=== PATIENT | male | born 1950 | race Caucasian/White ===

== ENCOUNTER 2017-05-08 07:33 | Day surgery (SDC) | payer MEDICARE, BC ==
[~2017-05-08 07:33] MED LIST: Midazolam 1 MG/ML 2 ML SDV ONE; Propofol 200 MG/20 ML SDV ONE; fentaNYL 100 MCG/2 ML SDV ONE
[2017-05-08] MEDS ORDERED: Sodium Chloride 0.9% 1,000 ML IV SCH (08:00)
[2017-05-08 10:21] VITALS: BP 119/78
--- NOTE | 2017-05-09 08:59 | OR ---
DATE OF PROCEDURE: 05/08/2017 PROCEDURE: Colonoscopy. FINDINGS: 1. Ascending colon polyp, approximately 5 mm, completely removed using cold biopsy forceps. 2. Ascending colon polyp #2, approximately 5 mm, completely removed using cold biopsy forceps. 3. Descending colon polyp, approximately 1 cm, completely removed using hot snare. 4. Sigmoid colon polyp, approximately 1.5 cm, completely removed using hot snare. COMPLICATIONS: None. SPECIAL EDUCATOR: None. PREOPERATIVE DIAGNOSIS: History of colon polyps. POSTOPERATIVE DIAGNOSIS: History of colon polyps. RISKS: Risks, benefits, alternatives, limitations including, but not limited to infection, bleeding, and perforation were explained to the patient and they wished to proceed. PROCEDURE IN DETAIL: The patient was placed in left lateral decubitus position. Digital rectal exam was performed without abnormality. The scope was introduced and advanced atraumatically to the ileocecal valve. The scope was brought back to the ascending, transverse, descending colon, and retroflexed. The aforementioned polyps were identified and completely removed in the manner described as above. No diverticulosis. No other masses. No blood. No other complications. The patient tolerated the procedure well. Jose Dunlap MD /[id number]
== END 2017-05-08 10:40 | disposition home or self-care (01) ==
LOC: JP.SDS 07:33
PROVIDERS: ATTEND Surgery
DX: Z12.11 Encounter for screening for malignant neoplasm of colon (principal); D12.2 Benign neoplasm of ascending colon; D12.4 Benign neoplasm of descending colon; D12.5 Benign neoplasm of sigmoid colon
CPT/HCPCS: 45380; 45385; 88305; J2250; J2704; J3010; J7040; 20552

== ENCOUNTER 2018-05-10 17:44 | Observation (INO) | payer MEDICARE, BC ==
[2018-05-10] MEDS ORDERED: Ketorolac 60 MG/2 ML SDV IM ONE (18:13)
--- NOTE | 2018-05-10 18:13 | EDM.PDOC ---
ED HPI GENERAL MEDICAL PROBLEM - General Chief Complaint: Respiratory Problem Stated Complaint: RT LUNG/RIBS PAIN, COUGH Time Seen by Provider: 05/10/18 18:13 Source of Information: Reports: Patient History Limitations: Reports: No Limitations - History of Present Illness INITIAL COMMENTS - FREE TEXT/NARRATIVE: pt started having a cough about 1 week ago. he was seen at the clinic on fri and he was placed on doxycyline and predisone. He has continued to get worse. Onset: Gradual, Other (over a period of 1 week. ) Duration: Hour(s): Location: Reports: Chest Associated Symptoms: Reports: Chest Pain, Cough, Shortness of Breath Right Pain Score (Numeric/FACES): 9 - Related Data Allergies Allergy/AdvReac Type Severity Reaction Status Date / Time environment Allergy Cannot Uncoded 05/06/17 10:08 Remember Home Meds: Home Meds Albuterol [Ventolin HFA] 2 puff INH Q6H PRN 05/06/17 [History] Budesonide/Formoterol [Symbicort 160-4.5 MCG] 2 puff INH BID 05/06/17 [History] Insulin Degludec [Tresiba Flextouch U-200] 70 unit SQ Q24H 05/06/17 [History] Lisinopril [Zestril] 30 mg PO DAILY 05/06/17 [History] Metoprolol Succinate [Toprol XL 100mg] 100 mg PO DAILY 05/06/17 [History] atorvaSTATin [Lipitor] 40 mg PO BEDTIME 05/06/17 [History] glyBURIDE [Glyburide] 5 mg PO DAILY 05/06/17 [History] metFORMIN [Glucophage] 1,000 mg PO DAILY 05/06/17 [History] Past Medical History HEENT History: Reports: Allergic Rhinitis, Cataract, Impaired Vision Cardiovascular History: Reports: High Cholesterol, Hypertension Respiratory History: Reports: Asthma, Bronchitis, Recurrent, Pneumonia, Recurrent Gastrointestinal History: Reports: Chronic Diarrhea, Colon Polyp Musculoskeletal History: Reports: Arthritis Endocrine/Metabolic History: Reports: Diabetes, Type I, Obesity/BMI 30+ - Infectious Disease History Infectious Disease History: Reports: Chicken Pox - Past Surgical History HEENT Surgical History: Reports: Cataract Surgery Cardiovascular Surgical History: Reports: None Respiratory Surgical History: Reports: None GI Surgical History: Reports: Colonoscopy, Polypectomy Endocrine Surgical History: Reports: None Musculoskeletal Surgical History: Reports: None Social & Family History - Tobacco Use Smoking Status *Q: Former Smoker Used Tobacco, but Quit: Yes Month/Year Tobacco Last Used: 2002 - Caffeine Use Caffeine Use: Reports: Coffee - Recreational Drug Use Recreational Drug Use: No ED ROS GENERAL - Review of Systems Review Of Systems: See Below Constitutional: Reports: No Symptoms HEENT: Reports: No Symptoms Respiratory: Reports: Shortness of Breath, Wheezing, Pleuritic Chest Pain, Cough Cardiovascular: Reports: No Symptoms Endocrine: Reports: No Symptoms GI/Abdominal: Reports: No Symptoms : Reports: No Symptoms Musculoskeletal: Reports: No Symptoms Skin: Reports: No Symptoms Neurological: Reports: No Symptoms ED EXAM, GENERAL - Physical Exam Exam: See Below Free Text/Narrative:: pt arrived splinting markedly. He is coughing alomost continuously. He has not been able to rest. Pt states this has been very severe in the last 24 hours. Exam Limited By: No Limitations General Appearance: Alert, Severe Distress Ears: Normal TMs Nose: Normal Inspection Throat/Mouth: Normal Inspection Head: Atraumatic Neck: Normal Inspection Respiratory/Chest: Decreased Breath Sounds, Crackles, Splinting Cardiovascular: Regular Rate, Rhythm, Tachycardia GI/Abdominal: Soft, Non-Tender (Male) Exam: Deferred Rectal (Males) Exam: Deferred Back Exam: Normal Inspection Extremities: Normal Inspection Neurological: Alert, Oriented, Normal Cognition Psychiatric: Anxious Course - Vital Signs Last Recorded V/S: Last Vital Signs Temp 35.7 C 05/10/18 19:13 Pulse 72 05/10/18 21:03 Resp 18 05/10/18 19:13 BP 136/85 05/10/18 21:03 Pulse Ox 91 L 05/10/18 21:03 - Orders/Labs/Meds Orders: Active Orders 24 hr Category Date Time Status EKG Documentation Completion [RC] ASDIRECTED Care 05/10/18 18:19 Active Chest 2V [CR] Stat Exams 05/10/18 18:14 Taken Chest wo Cont [CT] Stat Exams 05/10/18 19:49 Taken Sodium Chloride 0.9% [Normal Saline] 1,000 ml Med 05/10/18 19:00 Active IV ASDIRECTED EKG 12 Lead [EK] Routine Ther 05/10/18 18:19 Ordered Medication Orders Sodium Chloride (Normal Saline) 1,000 mls @ 999 mls/hr IV ASDIRECTED CLEM Last Admin: 05/10/18 19:12 Dose: 999 mls/hr Labs: Laboratory Tests 05/10/18 05/10/18 05/10/18 Range/Units 18:12 18:20 18:20 WBC 11.7 H (4.5-11.0) K/uL RBC 4.68 (4.30-5.90) M/uL Hgb 13.8 (12.0-15.0) g/dL Hct 41.0 (40.0-54.0) % MCV 88 (80-98) fL MCH 30 (27-31) pg MCHC 34 (32-36) % Plt Count 280 (150-400) K/uL Neut % (Auto) 86 H (36-66) % Lymph % (Auto) 8 L (24-44) % [place] % (Auto) 5 (2-6) % Eos % (Auto) 1 L (2-4) % Baso % (Auto) 1 (0-1) % D-Dimer, Quantitative (0.0-400.0) ng/mL Sodium 133 L (140-148) mmol/L Potassium 5.8 H (3.6-5.2) mmol/L Chloride 98 L (100-108) mmol/L Carbon Dioxide 25 (21-32) mmol/L Anion Gap 15.8 H (5.0-14.0) mmol/L BUN 35 H (7-18) mg/dL Creatinine 1.6 H (0.8-1.3) mg/dL Est Cr Clr Drug Dosing 49.85 mL/min Estimated GFR (MDRD) 43 L (>60) Glucose 339 H (74-106) mg/dL Lactic Acid (0.4-2.0) mmol/L Calcium 9.4 (8.5-10.1) mg/dL Total Bilirubin 0.2 (0.2-1.0) mg/dL AST 36 (15-37) U/L ALT 80 H (12-78) U/L Alkaline Phosphatase 72 (46-116) U/L C-Reactive Protein 0.67 H (0.0-0.3) mg/dL Total Protein 7.3 (6.4-8.2) g/dL Albumin 3.6 (3.4-5.0) g/dL Globulin 3.7 H (2.3-3.5) g/dL Albumin/Globulin Ratio 1.0 L (1.2-2.2) Urine Color Urine Appearance Urine pH (4.5-8.0) Ur Specific [place] (1.008-1.030) Urine Protein (NEGATIVE) mg/dL Urine Glucose (UA) (NEGATIVE) mg/dL Urine Ketones (NEGATIVE) mg/dL Urine Occult Blood (NEGATIVE) Urine Nitrite (NEGAITVE) Urine Bilirubin (NEGATIVE) Urine Urobilinogen (NORMAL) mg/dL Ur Leukocyte Esterase (NEGATIVE) Urine RBC (0-5) Urine WBC (0-5) Ur Epithelial Cells Amorphous Sediment Urine Bacteria Urine Mucus 05/10/18 05/10/18 05/10/18 Range/Units 18:46 19:06 21:16 WBC (4.5-11.0) K/uL RBC (4.30-5.90) M/uL Hgb (12.0-15.0) g/dL Hct (40.0-54.0) % MCV (80-98) fL MCH (27-31) pg MCHC (32-36) % Plt Count (150-400) K/uL Neut % (Auto) (36-66) % Lymph % (Auto) (24-44) % [place] % (Auto) (2-6) % Eos % (Auto) (2-4) % Baso % (Auto) (0-1) % D-Dimer, Quantitative 344 (0.0-400.0) ng/mL Sodium (140-148) mmol/L Potassium (3.6-5.2) mmol/L Chloride (100-108) mmol/L Carbon Dioxide (21-32) mmol/L Anion Gap (5.0-14.0) mmol/L BUN (7-18) mg/dL Creatinine (0.8-1.3) mg/dL Est Cr Clr Drug Dosing mL/min Estimated GFR (MDRD) (>60) Glucose (74-106) mg/dL Lactic Acid 2.0 (0.4-2.0) mmol/L Calcium (8.5-10.1) mg/dL Total Bilirubin (0.2-1.0) mg/dL AST (15-37) U/L ALT (12-78) U/L Alkaline Phosphatase (46-116) U/L C-Reactive Protein (0.0-0.3) mg/dL Total Protein (6.4-8.2) g/dL Albumin (3.4-5.0) g/dL Globulin (2.3-3.5) g/dL Albumin/Globulin Ratio (1.2-2.2) Urine Color Yellow Urine Appearance Clear Urine pH 5.0 (4.5-8.0) Ur Specific [place] 1.010 (1.008-1.030) Urine Protein Negative (NEGATIVE) mg/dL Urine Glucose (UA) 1000 H (NEGATIVE) mg/dL Urine Ketones Negative (NEGATIVE) mg/dL Urine Occult Blood Negative (NEGATIVE) Urine Nitrite Negative (NEGAITVE) Urine Bilirubin Negative (NEGATIVE) Urine Urobilinogen Normal (NORMAL) mg/dL Ur Leukocyte Esterase Negative (NEGATIVE) Urine RBC 0-5 (0-5) Urine WBC 0-5 (0-5) Ur Epithelial Cells Few Amorphous Sediment Few Urine Bacteria Not seen Urine Mucus Few Meds: Medications Generic Name Dose Route Start Last Admin Trade Name Joana PRN Reason Stop Dose Admin Sodium Chloride 1,000 mls @ 999 mls/hr 05/10/18 19:00 05/10/18 19:12 Normal Saline IV 999 mls/hr ASDIRECTED CLEM Administration Discontinued Medications Generic Name Dose Route Start Last Admin Trade Name Joana PRN Reason Stop Dose Admin Benzonatate 200 mg 05/10/18 18:17 05/10/18 18:24 Tessalon Perles PO 05/10/18 18:18 200 mg ONETIME ONE Administration Hydromorphone HCl 0.5 mg 05/10/18 21:09 Dilaudid IVPUSH 05/10/18 21:10 ONETIME ONE Ceftriaxone Sodium 1 gm/ 50 mls @ 100 mls/hr 05/10/18 21:08 Sodium Chloride IV 05/10/18 21:37 ONETIME ONE Ketorolac Tromethamine 60 mg 05/10/18 18:13 05/10/18 18:20 Toradol IM 05/10/18 18:14 60 mg ONETIME ONE Administration Oxycodone/Acetaminophen 1 tab 05/10/18 18:14 05/10/18 18:20 Percocet 325-5 Mg PO 05/10/18 18:15 1 tab ONETIME ONE Administration - Re-Assessments/Exams Free Text/Narrative Re-Assessment/Exam: 05/10/18 21:13 [place] [address]. He is very uncomfortable. He had a chest xray that was not very productive. He had a cat scan of his chest which showed a infiltration of the soft tissues of the anterior chest. He had a nodule in the rt lower lobe that looke like a pneumonia. His creatnine is 1.6 with a gfr of 46. Departure - Departure Time of Disposition: 21:16 Disposition: Admitted As Inpatient 68 Condition: Fair Clinical Impression: Pleuritic chest pain, Pneumonia of right lower lobe due to infectious organism , Renal insufficiency - Discharge Information Referrals: Chevy Sanchez MD [Primary Care Provider] - Forms: ED Department Discharge Care Plan Goals: admit to Dr Rodriguez. - My Orders Last 24 Hours: My Active Orders 05/10/18 18:14 Chest 2V [CR] Stat 05/10/18 18:19 EKG Documentation Completion [RC] ASDIRECTED EKG 12 Lead [EK] Routine 05/10/18 19:00 Sodium Chloride 0.9% [Normal Saline] 1,000 ml IV ASDIRECTED 05/10/18 19:49 Chest wo Cont [CT] Stat - Assessment/Plan Last 24 Hours: My Active Orders 05/10/18 18:14 Chest 2V [CR] Stat 05/10/18 18:19 EKG Documentation Completion [RC] ASDIRECTED EKG 12 Lead [EK] Routine 05/10/18 19:00 Sodium Chloride 0.9% [Normal Saline] 1,000 ml IV ASDIRECTED 05/10/18 19:49 Chest wo Cont [CT] Stat
[2018-05-10] MEDS ORDERED: Acetaminophen/oxyCODONE 325-5 MG Tab PO ONE (18:14)
[2018-05-10] MEDS ORDERED: Benzonatate 100 MG Cap PO ONE (18:17)
[2018-05-10] MEDS: Sodium Chloride 0.9% 1,000 ML IV SCH ×2 (19:12→21:42)
[2018-05-10] MEDS ORDERED: cefTRIAXone 1 GM in Sodium Chloride 0.9% 50 ML IV ONE (21:08)
[2018-05-10] MEDS ORDERED: HYDROmorphone 0.5 MG/0.5 ML Syringe IVPUSH ONE (21:09)
--- NOTE | 2018-05-10 22:08 | PCM.HP ---
H&P History of Present Illness - General Date of Service: 05/10/18 Source of Information: Patient History Limitations: Reports: No Limitations - History of Present Illness Initial Comments - Free Text/Narative: 68-year-old male with past medical history of diabetes, hyperlipidemia, hypertension, COPD, asthma came to the ED with the complaining of cough associated with the sputum which started since last 10 days which is gradually progressing. Patient went to the clinic with a similar complaint and received doxycycline medication along with prednisone since last 5 days. patient has been on this medication. Patient reports the symptoms did not get better. Patient complaining of right lower chest pain 7-8/10 in intensity associated with coughing. Patient denies any exertional chest pains. Patient to is not on any oxygen at baseline. Patient to denies any recent COPD hospital admissions. Patient was a previous smoking, quit smoking in 2012 has a smoking history of 45 years for 1 pack per day. Patient reports that he noticed sweating since last 2 days which is gradually progressing. Patient in the ED CT chest showed infiltrates in the anterior chest wall with right lower lobe area. He received ceftriaxone antibiotic and IV fluids. Patient is a full code. Other review of systems are not significant. Right Pain Score (Numeric/FACES): 9 - Related Data Allergies/Adverse Reactions: Allergies Allergy/AdvReac Type Severity Reaction Status Date / Time environment Allergy Cannot Uncoded 05/11/18 00:29 Remember Home Medications: Home Meds Albuterol [Ventolin HFA] 2 puff INH Q6H PRN 05/06/17 [History] Budesonide/Formoterol [Symbicort 160-4.5 MCG] 2 puff INH BID 05/06/17 [History] Insulin Degludec [Tresiba Flextouch U-200] 70 unit SQ Q24H 05/06/17 [History] Lisinopril [Zestril] 30 mg PO DAILY 05/06/17 [History] Metoprolol Succinate [Toprol XL 100mg] 100 mg PO DAILY 05/06/17 [History] glyBURIDE [Glyburide] 5 mg PO DAILY 05/06/17 [History] metFORMIN [Glucophage] 1,000 mg PO DAILY 05/06/17 [History] Lovastatin 20 mg PO WITHDINNER 05/11/18 [History] Montelukast Sodium 10 mg PO BEDTIME 05/11/18 [History] Past Medical History HEENT History: Reports: Allergic Rhinitis, Cataract, Impaired Vision Cardiovascular History: Reports: High Cholesterol, Hypertension Respiratory History: Reports: Asthma, Bronchitis, Recurrent, Pneumonia, Recurrent Gastrointestinal History: Reports: Chronic Diarrhea, Colon Polyp Musculoskeletal History: Reports: Arthritis Endocrine/Metabolic History: Reports: Diabetes, Type I, Obesity/BMI 30+ - Infectious Disease History Infectious Disease History: Reports: Chicken Pox - Past Surgical History HEENT Surgical History: Reports: Cataract Surgery Cardiovascular Surgical History: Reports: None Respiratory Surgical History: Reports: None GI Surgical History: Reports: Colonoscopy, Polypectomy Endocrine Surgical History: Reports: None Musculoskeletal Surgical History: Reports: None Social & Family History - Family History Family Medical History: Noncontributory - Tobacco Use Smoking Status *Q: Former Smoker Used Tobacco, but Quit: Yes Month/Year Tobacco Last Used: 2002 - Caffeine Use Caffeine Use: Reports: Coffee - Recreational Drug Use Recreational Drug Use: No H&P Review of Systems - Review of Systems: Review Of Systems: See Below General: Reports: Fever, Chills, Malaise, Weakness, Fatigue, Night Sweats, Decreased Appetite. Denies: Weight Loss Pulmonary: Reports: Shortness of Breath, Wheezing, Pleuritic Chest Pain, Cough, Sputum. Denies: Hemoptysis Cardiovascular: Reports: Chest Pain, Dyspnea on Exertion. Denies: Palpitations , Orthopnea, PND, Lightheadedness, Syncope, Claudication Gastrointestinal: Denies: Abdominal Pain, Anorexia, Black Stool, Constipation, Diarrhea, Nausea, Vomiting Genitourinary: Denies: Dysuria, Frequency Musculoskeletal: Denies: Neck Pain, Shoulder Pain Psychiatric: Denies: Confusion, Depression, Mood Lability Neurological: Denies: Dizziness, Headache, Numbness Hematologic/Lymphatic: Denies: Anemia, Easy Bleeding Exam - Exam Exam: See Below - Vital Signs Vital Signs: Last Vital Signs Temp 35.7 C 05/10/18 19:13 Pulse 72 05/10/18 21:03 Resp 18 05/10/18 19:13 BP 136/85 05/10/18 21:03 Pulse Ox 91 L 05/10/18 21:03 Weight: 133.81 kg - Exam Quality Assessment: No: Supplemental Oxygen General: Alert, Oriented Neck: Supple, Trachea Midline Lungs: Crackles, Rales Cardiovascular: Regular Rate, Regular Rhythm GI/Abdominal Exam: Normal Bowel Sounds, Soft Back Exam: Normal Inspection, Full Range of Motion Extremities: Normal Inspection, Normal Range of Motion, Non-Tender, No Pedal Edema - Patient Data Lab Results Last 24 hrs: Laboratory Results - last 24 hr 05/10/18 05/10/18 05/10/18 Range/Units 18:12 18:20 18:20 WBC 11.7 H (4.5-11.0) K/uL RBC 4.68 (4.30-5.90) M/uL Hgb 13.8 (12.0-15.0) g/dL Hct 41.0 (40.0-54.0) % MCV 88 (80-98) fL MCH 30 (27-31) pg MCHC 34 (32-36) % Plt Count 280 (150-400) K/uL Neut % (Auto) 86 H (36-66) % Lymph % (Auto) 8 L (24-44) % [place] % (Auto) 5 (2-6) % Eos % (Auto) 1 L (2-4) % Baso % (Auto) 1 (0-1) % D-Dimer, Quantitative (0.0-400.0) ng/mL Sodium 133 L (140-148) mmol/L Potassium 5.8 H (3.6-5.2) mmol/L Chloride 98 L (100-108) mmol/L Carbon Dioxide 25 (21-32) mmol/L Anion Gap 15.8 H (5.0-14.0) mmol/L BUN 35 H (7-18) mg/dL Creatinine 1.6 H (0.8-1.3) mg/dL Est Cr Clr Drug Dosing 49.85 mL/min Estimated GFR (MDRD) 43 L (>60) Glucose 339 H (74-106) mg/dL Lactic Acid (0.4-2.0) mmol/L Calcium 9.4 (8.5-10.1) mg/dL Total Bilirubin 0.2 (0.2-1.0) mg/dL AST 36 (15-37) U/L ALT 80 H (12-78) U/L Alkaline Phosphatase 72 (46-116) U/L C-Reactive Protein 0.67 H (0.0-0.3) mg/dL Total Protein 7.3 (6.4-8.2) g/dL Albumin 3.6 (3.4-5.0) g/dL Globulin 3.7 H (2.3-3.5) g/dL Albumin/Globulin Ratio 1.0 L (1.2-2.2) Urine Color Urine Appearance Urine pH (4.5-8.0) Ur Specific [place] (1.008-1.030) Urine Protein (NEGATIVE) mg/dL Urine Glucose (UA) (NEGATIVE) mg/dL Urine Ketones (NEGATIVE) mg/dL Urine Occult Blood (NEGATIVE) Urine Nitrite (NEGAITVE) Urine Bilirubin (NEGATIVE) Urine Urobilinogen (NORMAL) mg/dL Ur Leukocyte Esterase (NEGATIVE) Urine RBC (0-5) Urine WBC (0-5) Ur Epithelial Cells Amorphous Sediment Urine Bacteria Urine Mucus 05/10/18 05/10/18 05/10/18 Range/Units 18:46 19:06 21:16 WBC (4.5-11.0) K/uL RBC (4.30-5.90) M/uL Hgb (12.0-15.0) g/dL Hct (40.0-54.0) % MCV (80-98) fL MCH (27-31) pg MCHC (32-36) % Plt Count (150-400) K/uL Neut % (Auto) (36-66) % Lymph % (Auto) (24-44) % [place] % (Auto) (2-6) % Eos % (Auto) (2-4) % Baso % (Auto) (0-1) % D-Dimer, Quantitative 344 (0.0-400.0) ng/mL Sodium (140-148) mmol/L Potassium (3.6-5.2) mmol/L Chloride (100-108) mmol/L Carbon Dioxide (21-32) mmol/L Anion Gap (5.0-14.0) mmol/L BUN (7-18) mg/dL Creatinine (0.8-1.3) mg/dL Est Cr Clr Drug Dosing mL/min Estimated GFR (MDRD) (>60) Glucose (74-106) mg/dL Lactic Acid 2.0 (0.4-2.0) mmol/L Calcium (8.5-10.1) mg/dL Total Bilirubin (0.2-1.0) mg/dL AST (15-37) U/L ALT (12-78) U/L Alkaline Phosphatase (46-116) U/L C-Reactive Protein (0.0-0.3) mg/dL Total Protein (6.4-8.2) g/dL Albumin (3.4-5.0) g/dL Globulin (2.3-3.5) g/dL Albumin/Globulin Ratio (1.2-2.2) Urine Color Yellow Urine Appearance Clear Urine pH 5.0 (4.5-8.0) Ur Specific [place] 1.010 (1.008-1.030) Urine Protein Negative (NEGATIVE) mg/dL Urine Glucose (UA) 1000 H (NEGATIVE) mg/dL Urine Ketones Negative (NEGATIVE) mg/dL Urine Occult Blood Negative (NEGATIVE) Urine Nitrite Negative (NEGAITVE) Urine Bilirubin Negative (NEGATIVE) Urine Urobilinogen Normal (NORMAL) mg/dL Ur Leukocyte Esterase Negative (NEGATIVE) Urine RBC 0-5 (0-5) Urine WBC 0-5 (0-5) Ur Epithelial Cells Few Amorphous Sediment Few Urine Bacteria Not seen Urine Mucus Few Result Diagrams: 05/11/18 05:47 05/11/18 05:47 - Problem List (1) Hyperlipemia SNOMED Code(s): 89744076 ICD Code: E78.5 - HYPERLIPIDEMIA, UNSPECIFIED Status: Acute Current Visit : Yes (2) Pleuritic chest pain SNOMED Code(s): 2931661 ICD Code: R07.81 - PLEURODYNIA Status: Acute Current Visit: Yes (3) Pneumonia of right lower lobe due to infectious organism SNOMED Code(s): 903059495, 734034999 ICD Code: J18.1 - LOBAR PNEUMONIA, UNSPECIFIED ORGANISM Status: Acute Current Visit: Yes (4) Renal insufficiency SNOMED Code(s): 155775366, 332401846 ICD Code: N28.9 - DISORDER OF KIDNEY AND URETER, UNSPECIFIED Status: Acute Current Visit: Yes (5) Asthma SNOMED Code(s): 809410939 ICD Code: J45.909 - UNSPECIFIED ASTHMA, UNCOMPLICATED Status: Chronic Current Visit: No (6) CKD (chronic kidney disease) stage 2, GFR 60-89 ml/min SNOMED Code(s): 824858619 ICD Code: N18.2 - CHRONIC KIDNEY DISEASE, STAGE 2 (MILD) Status: Chronic Current Visit: No (7) DDD (degenerative disc disease), lumbar SNOMED Code(s): 68926201 ICD Code: M51.36 - OTHER INTERVERTEBRAL DISC DEGENERATION, LUMBAR REGION Status: Chronic Current Visit: No (8) Morbid obesity with BMI of 50.0-59.9, adult SNOMED Code(s): 024885958 ICD Code: E66.01 - MORBID (SEVERE) OBESITY DUE TO EXCESS CALORIES; Z68.43 - BODY MASS INDEX (BMI) 50-59.9 , ADULT Status: Chronic Current Visit: No (9) Type 2 diabetes mellitus SNOMED Code(s): 63060172 ICD Code: E11.9 - TYPE 2 DIABETES MELLITUS WITHOUT COMPLICATIONS Status: Chronic Current Visit: No Problem List Initiated/Reviewed/Updated: Yes Orders Last 24hrs: Active Orders 24 hr Category Date Time Status EKG Documentation Completion [RC] ASDIRECTED Care 05/10/18 18:19 Active Chest 2V [CR] Stat Exams 05/10/18 18:14 Taken Chest wo Cont [CT] Stat Exams 05/10/18 19:49 Taken Sodium Chloride 0.9% [Normal Saline] 1,000 ml Med 05/10/18 19:00 Active IV ASDIRECTED EKG 12 Lead [EK] Routine Ther 05/10/18 18:19 Ordered Medication Orders Sodium Chloride (Normal Saline) 1,000 mls @ 999 mls/hr IV ASDIRECTED CLEM Last Admin: 05/10/18 21:42 Dose: 999 mls/hr Infusion: 05/10/18 20:13 Dose: 999 mls/hr Admin: 05/10/18 19:12 Dose: 999 mls/hr Assessment/Plan Comment:: 68-year-old male with past medical history of hypertension, hyperlipidemia, COPD , asthma came to the clinic with complaining of cough associated with the sputum and diagnosed with pneumonia in the right lower lobe and admitted into the hospital on observational status We'll place him on levofloxacin 750 mg once daily Continue IV fluids Will repeat CBC, CMP tomorrow Percocet for pain control DVT prophylaxis heparin Diet consistent carb diet, low-salt diet COde status full code Wells catheter not indicated Observational status
[2018-05-10] MEDS ORDERED: Sodium Chloride 0.9% 1,000 ML IV SCH (22:15)
[2018-05-10] MEDS ORDERED: Levofloxacin/Dextrose 5%-Water 750 MG in Premix Bag 1 BAG IV SCH (22:15)
[2018-05-10] MEDS ORDERED: Acetaminophen/oxyCODONE 325-5 MG Tab PO PRN (22:15)
[2018-05-10] MEDS: Benzonatate 100 MG Cap PO PRN (22:57)
[2018-05-10] MEDS: Heparin Sodium 5,000 Units/ML Vial SUBCUT SCH (22:58)
[2018-05-10] MEDS: Albuterol/Ipratropium 3.0-0.5 MG/3 ML Neb Soln NEB PRN (23:00)
[2018-05-10] MEDS: Acetaminophen/oxyCODONE 325-5 MG Tab PO PRN (23:45)
[2018-05-11] MEDS: Acetaminophen/oxyCODONE 325-5 MG Tab PO PRN ×5 (03:59→22:53)
[2018-05-11] MEDS: Albuterol/Ipratropium 3.0-0.5 MG/3 ML Neb Soln NEB PRN ×3 (03:59→19:32)
[2018-05-11] MEDS: Benzonatate 100 MG Cap PO PRN ×4 (04:26→19:43)
[2018-05-11] MEDS: Heparin Sodium 5,000 Units/ML Vial SUBCUT SCH ×3 (05:49→21:06)
--- NOTE | 2018-05-11 09:25 | CR ---
CHEST: 2 view CLINICAL HISTORY:Chest pain COMPARISON:None FINDINGS: The heart size, pulmonary vascular and hilar structures are normal. 05/10/2018 No infiltrat e effusion or pneumothorax is seen. IMPRESSION: No acute cardiopulmonary process.
[2018-05-11] MEDS ORDERED: Non-Formulary Medication 1 Each (Metoprolol Succinate [Toprol Xl 100mg] 100 MG) PO SCH (09:30)
[2018-05-11] MEDS ORDERED: INSULIN DEGLUDEC 70 UNIT SQ SCH (09:30)
[2018-05-11] MEDS ORDERED: Non-Formulary Medication 1 Each (Metformin [Glucophage] 1,000 MG) PO SCH (09:30)
[2018-05-11] MEDS ORDERED: GLYBURIDE 5 MG PO SCH (09:30)
[2018-05-11] MEDS ORDERED: Insulin Detemir 100 Units/ML 3 ML Pen SUBCUT SCH ×2 (09:45)
[2018-05-11] MEDS: METFORMIN 1000 MG PO SCH ×2 (09:47→16:15)
[2018-05-11] MEDS: LISINOPRIL 30 MG PO SCH (11:13)
[2018-05-11] MEDS: GLYBURIDE 5 MG PO SCH (11:13)
[2018-05-11] MEDS: Atenolol 50 MG Tab PO SCH (11:14)
[2018-05-11] MEDS: TRESIBA 100 UNIT/ML SUBCUT SCH (11:14)
--- NOTE | 2018-05-11 11:39 | PCM.PN ---
- General Info Date of Service: 05/11/18 Functional Status: Reports: Tolerating Diet. Denies: Pain Controlled - Review of Systems General: Denies: Fever Pulmonary: Reports: Pleuritic Chest Pain, Cough Systems Review Comment:: There were no acute events since admission. Patient continues to experience significant pain in the right lateral area of his chest. Coughing spells do not seem to respond as well to the benzonatate at this time. Coughing makes his pain significantly worse. He has not had any fevers. He does not have significant shortness of breath unless he has a coughing spell. - Patient Data Vitals - Most Recent: Last Vital Signs Temp 35.5 C 05/11/18 07:13 Pulse 78 05/11/18 11:14 Resp 16 05/11/18 07:13 BP 176/96 H 05/11/18 11:14 Pulse Ox 97 05/11/18 07:13 Weight - Most Recent: 178.897 kg I&O - Last 24 Hours: Intake & Output 05/10/18 05/11/18 05/11/18 22:59 06:59 14:59 Intake Total 1010 Output Total 400 Balance 610 Lab Results Last 24 Hours: Laboratory Results - last 24 hr 05/10/18 05/10/18 05/10/18 Range/Units 18:12 18:20 18:20 WBC 11.7 H (4.5-11.0) K/uL RBC 4.68 (4.30-5.90) M/uL Hgb 13.8 (12.0-15.0) g/dL Hct 41.0 (40.0-54.0) % MCV 88 (80-98) fL MCH 30 (27-31) pg MCHC 34 (32-36) % Plt Count 280 (150-400) K/uL Neut % (Auto) 86 H (36-66) % Lymph % (Auto) 8 L (24-44) % Hall % (Auto) 5 (2-6) % Eos % (Auto) 1 L (2-4) % Baso % (Auto) 1 (0-1) % D-Dimer, Quantitative (0.0-400.0) ng/mL Sodium 133 L (140-148) mmol/L Potassium 5.8 H (3.6-5.2) mmol/L Chloride 98 L (100-108) mmol/L Carbon Dioxide 25 (21-32) mmol/L Anion Gap 15.8 H (5.0-14.0) mmol/L BUN 35 H (7-18) mg/dL Creatinine 1.6 H (0.8-1.3) mg/dL Est Cr Clr Drug Dosing 49.85 mL/min Estimated GFR (MDRD) 43 L (>60) Glucose 339 H (74-106) mg/dL Lactic Acid (0.4-2.0) mmol/L Calcium 9.4 (8.5-10.1) mg/dL Total Bilirubin 0.2 (0.2-1.0) mg/dL AST 36 (15-37) U/L ALT 80 H (12-78) U/L Alkaline Phosphatase 72 (46-116) U/L C-Reactive Protein 0.67 H (0.0-0.3) mg/dL Total Protein 7.3 (6.4-8.2) g/dL Albumin 3.6 (3.4-5.0) g/dL Globulin 3.7 H (2.3-3.5) g/dL Albumin/Globulin Ratio 1.0 L (1.2-2.2) Urine Color Urine Appearance Urine pH (4.5-8.0) Ur Specific Gar[place] (1.008-1.030) Urine Protein (NEGATIVE) mg/dL Urine Glucose (UA) (NEGATIVE) mg/dL Urine Ketones (NEGATIVE) mg/dL Urine Occult Blood (NEGATIVE) Urine Nitrite (NEGAITVE) Urine Bilirubin (NEGATIVE) Urine Urobilinogen (NORMAL) mg/dL Ur Leukocyte Esterase (NEGATIVE) Urine RBC (0-5) Urine WBC (0-5) Ur Epithelial Cells Amorphous Sediment Urine Bacteria Urine Mucus 05/10/18 05/10/18 05/10/18 Range/Units 18:46 19:06 21:16 WBC (4.5-11.0) K/uL RBC (4.30-5.90) M/uL Hgb (12.0-15.0) g/dL Hct (40.0-54.0) % MCV (80-98) fL MCH (27-31) pg MCHC (32-36) % Plt Count (150-400) K/uL Neut % (Auto) (36-66) % Lymph % (Auto) (24-44) % Hall % (Auto) (2-6) % Eos % (Auto) (2-4) % Baso % (Auto) (0-1) % D-Dimer, Quantitative 344 (0.0-400.0) ng/mL Sodium (140-148) mmol/L Potassium (3.6-5.2) mmol/L Chloride (100-108) mmol/L Carbon Dioxide (21-32) mmol/L Anion Gap (5.0-14.0) mmol/L BUN (7-18) mg/dL Creatinine (0.8-1.3) mg/dL Est Cr Clr Drug Dosing mL/min Estimated GFR (MDRD) (>60) Glucose (74-106) mg/dL Lactic Acid 2.0 (0.4-2.0) mmol/L Calcium (8.5-10.1) mg/dL Total Bilirubin (0.2-1.0) mg/dL AST (15-37) U/L ALT (12-78) U/L Alkaline Phosphatase (46-116) U/L C-Reactive Protein (0.0-0.3) mg/dL Total Protein (6.4-8.2) g/dL Albumin (3.4-5.0) g/dL Globulin (2.3-3.5) g/dL Albumin/Globulin Ratio (1.2-2.2) Urine Color Yellow Urine Appearance Clear Urine pH 5.0 (4.5-8.0) Ur Specific [place] 1.010 (1.008-1.030) Urine Protein Negative (NEGATIVE) mg/dL Urine Glucose (UA) 1000 H (NEGATIVE) mg/dL Urine Ketones Negative (NEGATIVE) mg/dL Urine Occult Blood Negative (NEGATIVE) Urine Nitrite Negative (NEGAITVE) Urine Bilirubin Negative (NEGATIVE) Urine Urobilinogen Normal (NORMAL) mg/dL Ur Leukocyte Esterase Negative (NEGATIVE) Urine RBC 0-5 (0-5) Urine WBC 0-5 (0-5) Ur Epithelial Cells Few Amorphous Sediment Few Urine Bacteria Not seen Urine Mucus Few 05/11/18 05/11/18 Range/Units 05:47 05:47 WBC 9.2 (4.5-11.0) K/uL RBC 4.34 (4.30-5.90) M/uL Hgb 12.8 (12.0-15.0) g/dL Hct 38.3 L (40.0-54.0) % MCV 88 (80-98) fL MCH 30 (27-31) pg MCHC 33 (32-36) % Plt Count 242 (150-400) K/uL Neut % (Auto) 67 H (36-66) % Lymph % (Auto) 22 L (24-44) % Hall % (Auto) 8 H (2-6) % Eos % (Auto) 2 (2-4) % Baso % (Auto) 1 (0-1) % D-Dimer, Quantitative (0.0-400.0) ng/mL Sodium 137 L (140-148) mmol/L Potassium 4.6 (3.6-5.2) mmol/L Chloride 101 (100-108) mmol/L Carbon Dioxide 28 (21-32) mmol/L Anion Gap 12.6 (5.0-14.0) mmol/L BUN 35 H (7-18) mg/dL Creatinine 1.4 H (0.8-1.3) mg/dL Est Cr Clr Drug Dosing 57.05 mL/min Estimated GFR (MDRD) 51 L (>60) Glucose 164 H (74-106) mg/dL Lactic Acid (0.4-2.0) mmol/L Calcium 8.6 (8.5-10.1) mg/dL Total Bilirubin 0.2 (0.2-1.0) mg/dL AST 23 (15-37) U/L ALT 65 (12-78) U/L Alkaline Phosphatase 54 (46-116) U/L C-Reactive Protein (0.0-0.3) mg/dL Total Protein 6.5 (6.4-8.2) g/dL Albumin 3.2 L (3.4-5.0) g/dL Globulin 3.3 (2.3-3.5) g/dL Albumin/Globulin Ratio 1.0 L (1.2-2.2) Urine Color Urine Appearance Urine pH (4.5-8.0) Ur Specific [place] (1.008-1.030) Urine Protein (NEGATIVE) mg/dL Urine Glucose (UA) (NEGATIVE) mg/dL Urine Ketones (NEGATIVE) mg/dL Urine Occult Blood (NEGATIVE) Urine Nitrite (NEGAITVE) Urine Bilirubin (NEGATIVE) Urine Urobilinogen (NORMAL) mg/dL Ur Leukocyte Esterase (NEGATIVE) Urine RBC (0-5) Urine WBC (0-5) Ur Epithelial Cells Amorphous Sediment Urine Bacteria Urine Mucus Med Orders - Current: Current Medications Albuterol/Ipratropium (Duoneb 3.0-0.5 Mg/3 Ml) 3 ml NEB QID PRN PRN Reason: Shortness Of Breath/wheezing Last Admin: 05/11/18 10:46 Dose: 3 ml Atenolol (Tenormin) 100 mg PO DAILY [facility] Last Admin: 05/11/18 11:14 Dose: 100 mg Benzonatate (Tessalon Perles) 200 mg PO TID PRN PRN Reason: Cough Last Admin: 05/11/18 09:34 Dose: 200 mg Heparin Sodium (Porcine) (Heparin Sodium) 5,000 units SUBCUT Q8H [facility] Sodium Chloride (Normal Saline) 1,000 mls @ 150 mls/hr IV ASDIRECTED [facility] Last Admin: 05/10/18 22:58 Dose: 150 mls/hr Levofloxacin/Dextrose 750 mg/ (Premix) 150 mls @ 100 mls/hr IV Q24H [facility] Lovastatin (Mevacor) 20 mg PO WITHDINNER [facility] Metformin HCl (Glucophage) 1,000 mg PO BIDMEALS [facility] Last Admin: 05/11/18 09:47 Dose: Not Given Non-Formulary Medication (Budesonide/Formoterol [Symbicort 160-4.5 Mcg]) 2 puff INH BID [facility] Oxycodone/Acetaminophen (Percocet 325-5 Mg) 1 tab PO Q4H PRN PRN Reason: Pain/Fever Last Admin: 05/11/18 10:45 Dose: 1 tab Lisinopril 30mg ( (Ptom)) 0 each PO DAILY [facility] Last Admin: 05/11/18 11:13 Dose: 1 each Tresiba 100units/Ml (Pen --Ptom) 0 each SUBCUT DAILY [facility] Last Admin: 05/11/18 11:14 Dose: 1 each Glyburide 5mg Tab ( (Ptom)) 0 each PO DAILY [facility] Last Admin: 05/11/18 11:13 Dose: 1 each Discontinued Medications Benzonatate (Tessalon Perles) 200 mg PO ONETIME ONE Stop: 05/10/18 18:18 Last Admin: 05/10/18 18:24 Dose: 200 mg Heparin Sodium (Porcine) (Heparin Sodium) 5,000 units SUBCUT Q8H [facility] Last Admin: 05/11/18 05:49 Dose: 5,000 units Hydromorphone HCl (Dilaudid) 0.5 mg IVPUSH ONETIME ONE Stop: 05/10/18 21:10 Last Admin: 05/10/18 21:41 Dose: 0.5 mg Sodium Chloride (Normal Saline) 1,000 mls @ 999 mls/hr IV ASDIRECTED [facility] Last Admin: 05/10/18 21:42 Dose: 999 mls/hr Ceftriaxone Sodium 1 gm/ (Sodium Chloride) 50 mls @ 100 mls/hr IV ONETIME ONE Stop: 05/10/18 21:37 Last Admin: 05/10/18 21:41 Dose: 100 mls/hr Levofloxacin/Dextrose 750 mg/ (Premix) 150 mls @ 100 mls/hr IV Q24H [facility] Last Admin: 05/10/18 22:56 Dose: 100 mls/hr Ketorolac Tromethamine (Toradol) 60 mg IM ONETIME ONE Stop: 05/10/18 18:14 Last Admin: 05/10/18 18:20 Dose: 60 mg Non-Formulary Medication (Atorvastatin [Lipitor]) 40 mg PO BEDTIME [facility] Non-Formulary Medication (Metoprolol Succinate [Toprol Xl 100mg]) 100 mg PO DAILY [facility] Oxycodone/Acetaminophen (Percocet 325-5 Mg) 1 tab PO ONETIME ONE Stop: 05/10/18 18:15 Last Admin: 05/10/18 18:20 Dose: 1 tab Oxycodone/Acetaminophen (Percocet 325-5 Mg) 1 tab PO Q6H PRN PRN Reason: Pain/Fever - Exam Quality Assessment: No: Supplemental Oxygen General: Alert, Oriented, Cooperative, Mild Distress Lungs: Clear to Auscultation, Normal Respiratory Effort, Other (tender right lateral chest wall. No ) Cardiovascular: Regular Rate, Regular Rhythm GI/Abdominal Exam: Soft, No Distention Psy/Mental Status: Alert, Normal Affect - Problem List Review Problem List Initiated/Reviewed/Updated: Yes - My Orders Last 24 Hours: My Active Orders 05/11/18 09:40 metFORMIN [Glucophage] 1,000 mg PO BIDMEALS 05/11/18 11:00 Atenolol [Tenormin] 100 mg PO DAILY Patient's Own Medication [Ptom] 0 each PO DAILY Patient's Own Medication [Ptom] 0 each PO DAILY Patient's Own Medication [Ptom] 0 each SUBCUT DAILY 05/11/18 11:35 Albuterol [Ventolin HFA] 2 puff INH Q6H PRN Codeine/guaiFENesin [Robitussin AC] 10 ml PO Q4H PRN 05/11/18 11:36 Cooling Warming Measures [RC] ASDIRECTED Heat Therapy [OM.PC] Routine Ice Pack [Ice Therapy] [OM.PC] Routine 05/11/18 11:45 Lidocaine 5% [Lidoderm 5%] 700 mg TOP Q24H 05/11/18 17:00 Lovastatin [Lovastatin] 20 mg PO WITHDINNER Lovastatin [Mevacor] 20 mg PO WITHDINNER 05/11/18 21:00 Budesonide/Formoterol [Symbicort 160-4.5 MCG] 2 puff INH BID Montelukast Sodium [Montelukast Sodium] 10 mg PO BEDTIME 05/12/18 05:00 BASIC METABOLIC PANEL,BMP [CHEM] Timed CBC W/O DIFF,HEMOGRAM [HEME] Timed (1) - Plan Plan:: ASSESSMENT AND PLAN - Right chest wall pain - CT scan noted area of edema and inflammation. I suspect this is either inflammation related to muscle strain or possibly a small hematoma from his coughing. He continues to experience significant pain. -Lidocaine patch -Oxycodone as needed for moderate to severe pain -Alternate heat and ice Probable acute bronchitis - Patient with cough and increased shortness of breath prior to admission. History of asthma/COPD but no evidence for exacerbation of COPD at this time. Chest x-ray did not show significant pneumonia. -Continue levofloxacin Insulin-dependent diabetes mellitus - blood sugars have been fairly well- controlled. -Continue home medications Essential hypertension - continue home meds Maintenance issues - - DVT prophylaxis - heparin - GI prophylaxis - not indicated - Nutrition - diabetic Admission justification - patient will remain observation status today Disposition - I would anticipate discharge to home after the hospital stay Iván Dan M.D.
[2018-05-11] MEDS: Lidocaine 5% 700 MG Patch TOP SCH (13:02)
[2018-05-11] MEDS: Codeine/guaiFENesin 100mg-10 MG/5 ML Syrup 10 ML Cup PO PRN ×2 (13:07→16:58)
[2018-05-11] MEDS ORDERED: Albuterol 8 GM Inhaler INH PRN (14:42)
[2018-05-11] MEDS: Lovastatin 20 MG Tab (PTOM) PO SCH (16:15)
[2018-05-11] MEDS ORDERED: LOVASTATIN 20 MG PO SCH (17:00)
[2018-05-11] MEDS ORDERED: Non-Formulary Medication 1 Each (Budesonide/Formoterol [Symbicort 160-4.5 Mcg] 2 PUFF) INH SCH (21:00)
[2018-05-11] MEDS ORDERED: Non-Formulary Medication 1 Each (Atorvastatin [Lipitor] 40 MG) PO SCH (21:00)
[2018-05-11] MEDS ORDERED: MONTELUKAST SODIUM 10 MG PO SCH (21:00)
[2018-05-11] MEDS: Levofloxacin/Dextrose 5%-Water 750 MG in Premix Bag 1 BAG IV SCH (21:05)
[2018-05-11] MEDS: MONTELUKAST 10 MG PO SCH (21:06)
[2018-05-12] MEDS: Acetaminophen/oxyCODONE 325-5 MG Tab PO PRN ×4 (02:47→20:05)
[2018-05-12] MEDS: Benzonatate 100 MG Cap PO PRN ×2 (05:11→17:59)
[2018-05-12] MEDS: Heparin Sodium 5,000 Units/ML Vial SUBCUT SCH ×3 (05:11→23:30)
[2018-05-12] MEDS: Codeine/guaiFENesin 100mg-10 MG/5 ML Syrup 10 ML Cup PO PRN (05:20)
[2018-05-12] MEDS: Ketorolac 30 MG/ML SDV IVPUSH PRN (05:20)
[2018-05-12] MEDS: METFORMIN 1000 MG PO SCH ×2 (08:36→16:03)
[2018-05-12] MEDS: GLYBURIDE 5 MG PO SCH (08:36)
[2018-05-12] MEDS: TRESIBA 100 UNIT/ML SUBCUT SCH (08:37)
[2018-05-12] MEDS: Lidocaine 5% 700 MG Patch TOP SCH (08:37)
[2018-05-12] MEDS: Albuterol/Ipratropium 3.0-0.5 MG/3 ML Neb Soln NEB PRN ×2 (09:46→17:59)
[2018-05-12] MEDS: Atenolol 50 MG Tab PO SCH (10:14)
[2018-05-12] MEDS: LISINOPRIL 30 MG PO SCH (10:14)
[2018-05-12] MEDS: Docusate Sodium 100 MG Cap PO SCH (10:36)
[2018-05-12] MEDS ORDERED: Ibuprofen 600 MG Tab PO PRN (14:08)
--- NOTE | 2018-05-12 14:16 | PCM.PN ---
- General Info Date of Service: 05/12/18 Functional Status: Reports: Tolerating Diet - Review of Systems General: Denies: Fever Musculoskeletal: Reports: Other (chest wall pain on the right ) Systems Review Comment:: One episode of acute pain overnight with coughing but otherwise he feels better today. He is able to move better and his pain has improved. Still a fair amount of pain with coughing and he is very nervous about going home given the severity of his pain last night. Cough seems to be slowly improving. He has not had any fevers. No bowel movement since admission. - Patient Data Vitals - Most Recent: Last Vital Signs Temp 35.7 C 05/12/18 08:34 Pulse 83 05/12/18 08:34 Resp 16 05/12/18 08:34 BP 111/73 05/12/18 09:50 Pulse Ox 96 05/12/18 08:34 Weight - Most Recent: 136.894 kg I&O - Last 24 Hours: Intake & Output 05/11/18 05/12/18 05/12/18 22:59 06:59 14:59 Intake Total 1200 500 240 Output Total 400 Balance 1200 100 240 Lab Results Last 24 Hours: Laboratory Results - last 24 hr 05/12/18 05/12/18 Range/Units 05:00 05:00 WBC 10.3 (4.5-11.0) K/uL RBC 4.33 (4.30-5.90) M/uL Hgb 12.9 (12.0-15.0) g/dL Hct 38.5 L (40.0-54.0) % MCV 89 (80-98) fL MCH 30 (27-31) pg MCHC 34 (32-36) % Plt Count 224 (150-400) K/uL Sodium 136 L (140-148) mmol/L Potassium 4.7 (3.6-5.2) mmol/L Chloride 101 (100-108) mmol/L Carbon Dioxide 26 (21-32) mmol/L Anion Gap 13.7 (5.0-14.0) mmol/L BUN 25 H (7-18) mg/dL Creatinine 1.3 (0.8-1.3) mg/dL Est Cr Clr Drug Dosing 61.35 mL/min Estimated GFR (MDRD) 55 L (>60) Glucose 110 H (74-106) mg/dL Calcium 8.9 (8.5-10.1) mg/dL Med Orders - Current: Current Medications Albuterol (Ventolin Hfa) 0 gm INH Q6H PRN PRN Reason: Shortness of Breath Albuterol/Ipratropium (Duoneb 3.0-0.5 Mg/3 Ml) 3 ml NEB QID PRN PRN Reason: Shortness Of Breath/wheezing Last Admin: 05/12/18 09:46 Dose: 3 ml Atenolol (Tenormin) 100 mg PO DAILY [facility] Last Admin: 05/12/18 10:14 Dose: Not Given Benzonatate (Tessalon Perles) 200 mg PO TID PRN PRN Reason: Cough Last Admin: 05/12/18 05:11 Dose: 200 mg Docusate Sodium (Colace) 100 mg PO DAILY [facility] Last Admin: 05/12/18 10:36 Dose: 100 mg Guaifenesin/Codeine Phosphate (Robitussin Ac) 10 ml PO Q4H PRN PRN Reason: Cough Last Admin: 05/12/18 05:20 Dose: 10 ml Heparin Sodium (Porcine) (Heparin Sodium) 5,000 units SUBCUT Q8H [facility] Last Admin: 05/12/18 13:32 Dose: 5,000 units Levofloxacin/Dextrose 750 mg/ (Premix) 150 mls @ 100 mls/hr IV Q24H [facility] Last Admin: 05/11/18 21:05 Dose: 100 mls/hr Ketorolac Tromethamine (Toradol) 15 mg IVPUSH Q6H PRN PRN Reason: Pain (severe 7-10) Stop: 05/16/18 17:23 Last Admin: 05/12/18 05:20 Dose: 15 mg Lidocaine (Lidoderm 5%) 700 mg TOP DAILY [facility] Last Admin: 05/12/18 08:37 Dose: 700 mg Lovastatin (Mevacor) 20 mg PO WITHDINNER [facility] Last Admin: 05/11/18 16:15 Dose: 20 mg Metformin HCl (Glucophage) 1,000 mg PO BIDMEALS [facility] Last Admin: 05/12/18 08:36 Dose: 1,000 mg Miscellaneous Information (Remove Patch) 1 ea TRDERM BEDTIME [facility] Last Admin: 05/11/18 23:00 Dose: Not Given Montelukast Sodium (Singulair) 10 mg PO BEDTIME [facility] Last Admin: 05/11/18 21:06 Dose: 10 mg Non-Formulary Medication (Budesonide/Formoterol [Symbicort 160-4.5 Mcg]) 2 puff INH BID [facility] Oxycodone/Acetaminophen (Percocet 325-5 Mg) 1 tab PO Q4H PRN PRN Reason: Pain/Fever Last Admin: 05/12/18 09:46 Dose: 1 tab Lisinopril 30mg ( (Ptom)) 0 each PO DAILY [facility] Last Admin: 05/12/18 10:14 Dose: Not Given Tresiba 100units/Ml (Pen --Ptom) 0 each SUBCUT DAILY [facility] Last Admin: 05/12/18 08:37 Dose: 60 each Glyburide 5mg Tab ( (Ptom)) 0 each PO DAILY [facility] Last Admin: 05/12/18 08:36 Dose: 1 each Discontinued Medications Benzonatate (Tessalon Perles) 200 mg PO ONETIME ONE Stop: 05/10/18 18:18 Last Admin: 05/10/18 18:24 Dose: 200 mg Heparin Sodium (Porcine) (Heparin Sodium) 5,000 units SUBCUT Q8H [facility] Last Admin: 05/11/18 05:49 Dose: 5,000 units Hydromorphone HCl (Dilaudid) 0.5 mg IVPUSH ONETIME ONE Stop: 05/10/18 21:10 Last Admin: 05/10/18 21:41 Dose: 0.5 mg Sodium Chloride (Normal Saline) 1,000 mls @ 999 mls/hr IV ASDIRECTED [facility] Last Admin: 05/10/18 21:42 Dose: 999 mls/hr Ceftriaxone Sodium 1 gm/ (Sodium Chloride) 50 mls @ 100 mls/hr IV ONETIME ONE Stop: 05/10/18 21:37 Last Admin: 05/10/18 21:41 Dose: 100 mls/hr Sodium Chloride (Normal Saline) 1,000 mls @ 150 mls/hr IV ASDIRECTED [facility] Last Admin: 05/10/18 22:58 Dose: 150 mls/hr Levofloxacin/Dextrose 750 mg/ (Premix) 150 mls @ 100 mls/hr IV Q24H [facility] Last Admin: 05/10/18 22:56 Dose: 100 mls/hr Ketorolac Tromethamine (Toradol) 60 mg IM ONETIME ONE Stop: 05/10/18 18:14 Last Admin: 05/10/18 18:20 Dose: 60 mg Non-Formulary Medication (Atorvastatin [Lipitor]) 40 mg PO BEDTIME [facility] Non-Formulary Medication (Metoprolol Succinate [Toprol Xl 100mg]) 100 mg PO DAILY [facility] Last Admin: 05/11/18 11:57 Dose: Not Given Oxycodone/Acetaminophen (Percocet 325-5 Mg) 1 tab PO ONETIME ONE Stop: 05/10/18 18:15 Last Admin: 05/10/18 18:20 Dose: 1 tab Oxycodone/Acetaminophen (Percocet 325-5 Mg) 1 tab PO Q6H PRN PRN Reason: Pain/Fever - Exam Quality Assessment: No: Supplemental Oxygen General: Alert, Oriented, Cooperative, No Acute Distress Lungs: Normal Respiratory Effort GI/Abdominal Exam: Soft, No Distention Extremities: No Pedal Edema Skin: Warm, Dry Psy/Mental Status: Alert, Normal Affect - Problem List Review Problem List Initiated/Reviewed/Updated: Yes - My Orders Last 24 Hours: My Active Orders 05/11/18 14:42 Albuterol [Ventolin HFA] 0 gm INH Q6H PRN 05/11/18 17:00 Lovastatin [Mevacor] 20 mg PO WITHDINNER 05/11/18 17:23 Ketorolac [Toradol] 15 mg IVPUSH Q6H PRN 05/11/18 21:00 Budesonide/Formoterol [Symbicort 160-4.5 MCG] 2 puff INH BID Montelukast [Singulair] 10 mg PO BEDTIME 05/11/18 23:00 Remove Patch 1 ea TRDERM BEDTIME 05/12/18 10:00 Docusate Sodium [Colace] 100 mg PO DAILY 05/12/18 14:08 Ibuprofen [Motrin] 600 mg PO Q6H PRN - Plan Plan:: ASSESSMENT AND PLAN - Right chest wall pain - CT scan noted area of edema and inflammation. I suspect this is either inflammation related to muscle strain or possibly a small hematoma from his coughing. He continues to experience significant pain but is slowly improving. -Lidocaine patch -Oxycodone as needed for moderate to severe pain -Ibuprofen for mild to moderate pain versus ketorolac for severe pain -Alternate heat and ice Probable acute bronchitis - Chest x-ray did not show significant pneumonia. Clinically improving. -Continue levofloxacin Insulin-dependent diabetes mellitus - blood sugars have been well controlled. -Continue home medications Essential hypertension - continue home meds Maintenance issues - - DVT prophylaxis - heparin - GI prophylaxis - not indicated - Nutrition - diabetic Admission justification - patient will remain observation status today as I anticipate discharge tomorrow and I'm not escalating cares today Disposition - I would anticipate discharge to home after the hospital stay, hopefully tomorrow Iván Dan M.D.
[2018-05-12] MEDS: Lovastatin 20 MG Tab (PTOM) PO SCH (16:03)
[2018-05-12] MEDS: Levofloxacin/Dextrose 5%-Water 750 MG in Premix Bag 1 BAG IV SCH (19:50)
[2018-05-12] MEDS ORDERED: Magnesium Hydroxide 400 MG/5 ML Susp 30 ML Cup PO PRN (22:10)
--- NOTE | 2018-05-12 22:38 | PCM.SN ---
- Free Text/Narrative Note: time: 22:07 call from 2 [facility] S/O: Mr. Ro is experiencing painful bowel movement A: constipation P: MOM susp as directed continue present plan of care.
[2018-05-12] MEDS: MONTELUKAST 10 MG PO SCH (23:13)
[2018-05-13] MEDS: Ketorolac 30 MG/ML SDV IVPUSH PRN (02:36)
[2018-05-13] MEDS: Albuterol/Ipratropium 3.0-0.5 MG/3 ML Neb Soln NEB PRN ×2 (03:06→12:08)
[2018-05-13] MEDS: Acetaminophen/oxyCODONE 325-5 MG Tab PO PRN (05:17)
[2018-05-13] MEDS: Benzonatate 100 MG Cap PO PRN (05:18)
[2018-05-13] MEDS: Heparin Sodium 5,000 Units/ML Vial SUBCUT SCH (06:33)
[2018-05-13] MEDS: METFORMIN 1000 MG PO SCH (07:53)
[2018-05-13] MEDS: LISINOPRIL 30 MG PO SCH (08:30)
[2018-05-13] MEDS: Atenolol 50 MG Tab PO SCH (08:31)
[2018-05-13] MEDS: GLYBURIDE 5 MG PO SCH (08:31)
[2018-05-13] MEDS: TRESIBA 100 UNIT/ML SUBCUT SCH (08:32)
[2018-05-13] MEDS: Docusate Sodium 100 MG Cap PO SCH (08:34)
[2018-05-13] MEDS: Lidocaine 5% 700 MG Patch TOP SCH (08:34)
[2018-05-13 08:40] VITALS: BP 132/86
--- NOTE | 2018-05-13 12:18 | PCM.DCSUM1 ---
Discharge Summary - Hospital Course Brief History: 68-year-old male with insulin-dependent diabetes mellitus and chronic asthma currently receiving treatment for bronchitis who presented with severe right-sided chest pain. CT scan revealed an area of inflammation of the chest wall and he was admitted for pain control. Diagnosis: Stroke: No - Discharge Data Discharge Date: 05/13/18 Discharge Disposition: Home, Self-Care 01 Condition: Good - Discharge Diagnosis/Problem(s) (1) Acute bronchitis SNOMED Code(s): 50128216 ICD Code: J20.9 - ACUTE BRONCHITIS, UNSPECIFIED Status: Acute Qualifiers: Bronchitis organism: unspecified organism Qualified Code(s): J20.9 - Acute bronchitis, unspecified (2) Pleuritic chest pain SNOMED Code(s): 1917333 ICD Code: R07.81 - PLEURODYNIA Status: Acute (3) Type 2 diabetes mellitus SNOMED Code(s): 84185077 ICD Code: E11.9 - TYPE 2 DIABETES MELLITUS WITHOUT COMPLICATIONS Status: Chronic Qualifiers: Diabetes mellitus [facility] insulin use: with manager long term care use Diabetes mellitus complication status: without complication Qualified Code(s): E11.9 - Type 2 diabetes mellitus without complications; Z79.4 - terminal operator (current) use of insulin - Patient Summary/Data Recommended Follow-up Testing/Procedures: CT scan of the chest without contrast in about 3 months to reevaluate the right upper lobe nodule Hospital Course: Braxton presented to the emergency room with right-sided chest pain as well as cough and shortness of breath. He had recently been started on antibiotics and steroids for what was thought to be an episode of bronchitis. During treatment for this episode he developed severe pain in the right lower part of his chest. He presented to the emergency room and his chest x-ray was unremarkable. This prompted a CT scan of the chest which revealed an area of inflammation and edema and the right lower lateral chest wall. It was unclear if this was inflammatory or possibly a small hemorrhage/hematoma but did not appear to be infectious or neoplastic. He was admitted to the hospital for pain control. Overnight following admission there was not much improvement. The morning after admission a lidocaine patch was added to the treatment regimen as well as nonsteroidal anti-inflammatory drugs. By the second day in the hospital he was making some improvement but continued to have a fair amount of pain. At this point the working diagnosis was he developed a significant strain of the intercostal muscles in the area or possibly even had a small hemorrhage/ hematoma in this area. Over the next 24 hours he had additional improvement utilizing ibuprofen as well as heat and ice and then oxycodone for more intense pain. He has not had any fevers. His cough has been steadily improving. His white blood cell count has remained normal. I suspect his bronchitis has had sufficient treatment at this point I don't believe he needs additional anabiotics or steroids. I did provide a prescription for oxycodone which she will be using as needed for moderate to severe pain. He will utilize ibuprofen for mild pain. He will alternate heat and ice. he will consider utilizing over- the-counter lidocaine patches. He would benefit from early follow-up to ensure that he continues to do better. Also noted on the CT scan obtained in the emergency room was an irregular right upper lobe nodule measuring 1.6 cm. It was thought that this was most likely infectious or inflammatory but a 2-3 month follow-up was recommended (end of June [place] - Patient Instructions Diet: Diabetic Diet Driving: Do Not Drive (if taking pain pills) Showering/Bathing: May Shower Notify Provider of: Fever, Increased Pain Other/Special Instructions: 1. You were in the hospital for management of right- sided chest pain caused by inflammation of the chest wall, probably secondary to a severe coughing spell. I would recommend that you use ibuprofen for mild to moderate pain. You can take 600 mg every 6 hours as needed. You can use oxycodone/acetaminophen 1 tablet every 4 hours as needed for moderate to severe pain. You should apply heat and/or ice every 2-4 hours to help reduce the inflammation and swelling. You could consider purchasing [id number] lidocaine patches to apply over the area of pain. 2. To help reduce coughing I would recommend that you use guaifenesin (Mucinex) twice daily while you're having difficulty with excess mucus. 3. Please seek medical attention if you develop fever greater than 101, you have severe pain not controlled with your medications at home or if you develop acute shortness of breath. - Discharge Plan *PRESCRIPTION DRUG MONITORING PROGRAM REVIEWED*: Not Applicable *COPY OF PRESCRIPTION DRUG MONITORING REPORT IN PATIENT JUSTA: Not Applicable Prescriptions/Med Rec: Acetaminophen/oxyCODONE [Percocet 325-5 MG] 1 tab PO Q4H PRN #20 tablet PRN Reason: Pain Home Medications: Home Meds Albuterol [Ventolin HFA] 2 puff INH Q6H PRN 05/06/17 [History] Budesonide/Formoterol [Symbicort 160-4.5 MCG] 2 puff INH BID 05/06/17 [History] Insulin Degludec [Tresiba Flextouch U-200] 70 unit SQ Q24H 05/06/17 [History] Lisinopril [Zestril] 30 mg PO DAILY 05/06/17 [History] glyBURIDE [Glyburide] 5 mg PO DAILY 05/06/17 [History] metFORMIN [Glucophage] 1,000 mg PO DAILY 05/06/17 [History] Lovastatin 20 mg PO WITHDINNER 05/11/18 [History] Montelukast Sodium 10 mg PO BEDTIME 05/11/18 [History] Acetaminophen/oxyCODONE [Percocet 325-5 MG] 1 tab PO Q4H PRN #20 tablet [Rx] Atenolol 50 mg PO DAILY 05/13/18 [History] Patient Handouts: Pleurisy Referrals: Chevy Sanchez MD [Primary Care Provider] - 05/21/18 1:00 pm (Follow-up with Jamie Sheikh. Please arrive 15 minutes prior to appointment time.) - Discharge Summary/Plan Comment DC Time >30 min.: No (25) - Patient Data Vitals - Most Recent: Last Vital Signs Temp 35.8 C 05/13/18 08:39 Pulse 96 05/13/18 08:39 Resp 16 05/13/18 08:39 BP 132/86 05/13/18 08:39 Pulse Ox 96 05/13/18 08:39 Weight - Most Recent: 136.894 kg I&O - Last 24 hours: Intake & Output 05/12/18 05/13/18 05/13/18 22:59 06:59 14:59 Intake Total 150 700 480 Balance 150 700 480 Med Orders - Current: Current Medications Albuterol (Ventolin Hfa) 0 gm INH Q6H PRN PRN Reason: Shortness of Breath Albuterol/Ipratropium (Duoneb 3.0-0.5 Mg/3 Ml) 3 ml NEB QID PRN PRN Reason: Shortness Of Breath/wheezing Last Admin: 05/13/18 12:08 Dose: 3 ml Atenolol (Tenormin) 100 mg PO DAILY [facility] Last Admin: 05/13/18 08:31 Dose: 100 mg Benzonatate (Tessalon Perles) 200 mg PO TID PRN PRN Reason: Cough Last Admin: 05/13/18 05:18 Dose: 200 mg Docusate Sodium (Colace) 100 mg PO DAILY [facility] Last Admin: 05/13/18 08:34 Dose: 100 mg Guaifenesin/Codeine Phosphate (Robitussin Ac) 10 ml PO Q4H PRN PRN Reason: Cough Last Admin: 05/12/18 05:20 Dose: 10 ml Heparin Sodium (Porcine) (Heparin Sodium) 5,000 units SUBCUT Q8H [facility] Last Admin: 05/13/18 06:33 Dose: Not Given Levofloxacin/Dextrose 750 mg/ (Premix) 150 mls @ 100 mls/hr IV Q24H [facility] Last Admin: 05/12/18 19:50 Dose: 100 mls/hr Ibuprofen (Motrin) 600 mg PO Q6H PRN PRN Reason: Pain Ketorolac Tromethamine (Toradol) 15 mg IVPUSH Q6H PRN PRN Reason: Pain (severe 7-10) Stop: 05/16/18 17:23 Last Admin: 05/13/18 02:36 Dose: 15 mg Lidocaine (Lidoderm 5%) 700 mg TOP DAILY [facility] Last Admin: 05/13/18 08:34 Dose: 700 mg Lovastatin (Mevacor) 20 mg PO WITHDINNER [facility] Last Admin: 05/12/18 16:03 Dose: 20 mg Magnesium Hydroxide (Milk Of Magnesia) 30 ml PO BID PRN PRN Reason: Constipation Last Admin: 05/12/18 23:10 Dose: 30 ml Miscellaneous Information (Remove Patch) 1 ea TRDERM BEDTIME [facility] Last Admin: 05/12/18 23:13 Dose: Not Given Montelukast Sodium (Singulair) 10 mg PO BEDTIME [facility] Last Admin: 05/12/18 23:13 Dose: 10 mg Non-Formulary Medication (Budesonide/Formoterol [Symbicort 160-4.5 Mcg]) 2 puff INH BID [facility] Oxycodone/Acetaminophen (Percocet 325-5 Mg) 1 tab PO Q4H PRN PRN Reason: Pain/Fever Last Admin: 05/13/18 05:17 Dose: 1 tab Lisinopril 30mg ( (Ptom)) 0 each PO DAILY [facility] Last Admin: 05/13/18 08:30 Dose: 1 each Tresiba 100units/Ml (Pen --Ptom) 0 each SUBCUT DAILY [facility] Last Admin: 05/13/18 08:32 Dose: 60 each Glyburide 5mg Tab ( (Ptom)) 0 each PO DAILY [facility] Last Admin: 05/13/18 08:31 Dose: 1 each Metformin 1000mg Tab (Pom) 0 each PO BIDMEALS [facility] Discontinued Medications Benzonatate (Tessalon Perles) 200 mg PO ONETIME ONE Stop: 05/10/18 18:18 Last Admin: 05/10/18 18:24 Dose: 200 mg Heparin Sodium (Porcine) (Heparin Sodium) 5,000 units SUBCUT Q8H [facility] Last Admin: 05/11/18 05:49 Dose: 5,000 units Hydromorphone HCl (Dilaudid) 0.5 mg IVPUSH ONETIME ONE Stop: 05/10/18 21:10 Last Admin: 05/10/18 21:41 Dose: 0.5 mg Sodium Chloride (Normal Saline) 1,000 mls @ 999 mls/hr IV ASDIRECTED [facility] Last Admin: 05/10/18 21:42 Dose: 999 mls/hr Ceftriaxone Sodium 1 gm/ (Sodium Chloride) 50 mls @ 100 mls/hr IV ONETIME ONE Stop: 05/10/18 21:37 Last Admin: 05/10/18 21:41 Dose: 100 mls/hr Sodium Chloride (Normal Saline) 1,000 mls @ 150 mls/hr IV ASDIRECTED [facility] Last Admin: 05/10/18 22:58 Dose: 150 mls/hr Levofloxacin/Dextrose 750 mg/ (Premix) 150 mls @ 100 mls/hr IV Q24H [facility] Last Admin: 05/10/18 22:56 Dose: 100 mls/hr Ketorolac Tromethamine (Toradol) 60 mg IM ONETIME ONE Stop: 05/10/18 18:14 Last Admin: 05/10/18 18:20 Dose: 60 mg Metformin HCl (Glucophage) 1,000 mg PO BIDMEALS [facility] Last Admin: 05/13/18 07:53 Dose: 1,000 mg Non-Formulary Medication (Atorvastatin [Lipitor]) 40 mg PO BEDTIME [facility] Non-Formulary Medication (Metoprolol Succinate [Toprol Xl 100mg]) 100 mg PO DAILY [facility] Last Admin: 05/11/18 11:57 Dose: Not Given Oxycodone/Acetaminophen (Percocet 325-5 Mg) 1 tab PO ONETIME ONE Stop: 05/10/18 18:15 Last Admin: 05/10/18 18:20 Dose: 1 tab Oxycodone/Acetaminophen (Percocet 325-5 Mg) 1 tab PO Q6H PRN PRN Reason: Pain/Fever - Exam Quality Assessment: Denies: Supplemental Oxygen General: Reports: Alert, Oriented, Cooperative, No Acute Distress Lungs: Reports: Normal Respiratory Effort GI/Abdominal Exam: Soft, No Distention Extremities: No Pedal Edema Psy/Mental Status: Reports: Alert, Normal Affect
[2018-05-13] MEDS ORDERED: METFORMIN 1000 MG PO SCH (17:00)
== END 2018-05-13 12:30 | disposition home or self-care (01) ==
LOC: JP.ED 17:44 → JP.MS 22:23
PROVIDERS: ADMIT Family Medicine; ATTEND Internal Medicine
DX: J18.1 Lobar pneumonia, unspecified organism (principal); J20.9 Acute bronchitis, unspecified; I12.9 Hypertensive chronic kidney disease with stage 1 through stage 4 chronic kidney disease, or unspecified chronic kidney disease; E11.22 Type 2 diabetes mellitus with diabetic chronic kidney disease; N18.2 Chronic kidney disease, stage 2 (mild); J44.9 Chronic obstructive pulmonary disease, unspecified; E66.01 Morbid (severe) obesity due to excess calories; K59.00 Constipation, unspecified; E78.5 Hyperlipidemia, unspecified; M51.36 Other intervertebral disc degeneration, lumbar region; Z87.891 Personal history of nicotine dependence; Z79.4 Long term (current) use of insulin; Z79.899 Other long term (current) drug therapy
CPT/HCPCS: 36415; 71046; 71250; 80048; 80053; 81001; 82962; 83605; 85025; 85027; 85379; 86140; 93005; 94640; 96361; 96365; 96372; 96375; 99285; A9270; J0696; J1170; J1644; J1885; J1956; J7030; J7050; J7620-GY

== ENCOUNTER 2019-03-15 10:10 | Emergency (ER) | payer MEDICARE, BC ==
[2019-03-15 10:26] VITALS: BP 129/79; PULSE 70
[2019-03-15] MEDS ORDERED: Ketorolac 60 MG/2 ML SDV IM ONE (11:27)
--- NOTE | 2019-03-15 11:32 | EDM.PDOC ---
ED HPI GENERAL MEDICAL PROBLEM - General Chief Complaint: Back Pain or Injury Stated Complaint: BACK PAIN LOWER RIGHT Time Seen by Provider: 03/15/19 11:10 Source of Information: Reports: Patient History Limitations: Reports: No Limitations - History of Present Illness INITIAL COMMENTS - FREE TEXT/NARRATIVE: Alert very pleasant 68-year-old gentleman presents with low back pain, right flank pain which began approximately 2 weeks ago. Patient states he lifted a 20 pound Cylinder from beneath his grill with him proper body mechanics and then lifted a number of softener salt bags. Patient has been dealing with this pain for approximately 2 weeks it seems to wax and wane in intensity. He has been taking Aleve and ibuprofen for discomfort which seems to improve but did not resolve his symptoms. Patient denies any loss of bowel or bladder function. Denies any weakness in his lower extremities. Patient does have a history of sciatic nerve impingement on the right side but has not noted those symptoms during this acute phase of back pain. Patient states he has had some chronic intermittent discomfort over the years but nothing consistent. He denies having any surgery for back pain or injury. Patient is diabetic. Patient also had multiple hospitalizations earlier this year due to chronic pulmonary disease and was on steroids for quite some time which exacerbated his blood sugar and diabetes management. Patient has been given Toradol in the past which seemed to improve his symptoms. Patient does take muscle relaxants intermittently "I still one of my 's pills every once in a while which helps". Patient states he is sleeping well and he has newly diagnosed sleep apnea and is on a CPAP machine at night the last 2 months. Patient drove himself here for evaluation due to worsening discomfort this morning when he woke up. Onset: Gradual Duration: Week(s): (2 weeks waxing and waning ) Location: Reports: Back Severity: Moderate Improves with: Reports: Immobilization, Medication, Rest Worsens with: Reports: Breathing, Movement Associated Symptoms: Reports: No Other Symptoms Treatments [employer]: Reports: Cold Therapy, NSAIDS Right Back Pain Score (Numeric/FACES): 3 (at rest 9 with movement (rotation)) - Related Data Allergies Allergy/AdvReac Type Severity Reaction Status Date / Time environment Allergy Cannot Uncoded 03/15/19 10:37 Remember Home Meds: Home Meds Albuterol [Ventolin HFA] 2 puff INH Q6H PRN 05/06/17 [History] Budesonide/Formoterol [Symbicort 160-4.5 MCG] 2 puff INH BID 05/06/17 [History] Insulin Degludec [Tresiba Flextouch U-200] 70 unit SQ Q24H 05/06/17 [History] Lisinopril [Zestril] 30 mg PO DAILY 05/06/17 [History] glyBURIDE [Glyburide] 5 mg PO DAILY 05/06/17 [History] metFORMIN [Glucophage] 1,000 mg PO DAILY 05/06/17 [History] Lovastatin 20 mg PO WITHDINNER 05/11/18 [History] Montelukast Sodium 10 mg PO BEDTIME 05/11/18 [History] Atenolol 100 mg PO DAILY 05/13/18 [History] Cyclobenzaprine [Flexeril] 5 - 10 mg PO TID PRN 5 Days #15 tab 03/15/19 [Rx] Insulin Aspart [NovoLOG] 1 unit SUBCUT ASDIRECTED 03/15/19 [History] Past Medical History HEENT History: Reports: Allergic Rhinitis, Cataract, Impaired Vision Cardiovascular History: Reports: High Cholesterol, Hypertension Respiratory History: Reports: Asthma, Bronchitis, Recurrent, Pneumonia, Recurrent Gastrointestinal History: Reports: Chronic Diarrhea, Colon Polyp Musculoskeletal History: Reports: Arthritis Endocrine/Metabolic History: Reports: Diabetes, Type II, Obesity/BMI 30+ - Infectious Disease History Infectious Disease History: Reports: Chicken Pox - Past Surgical History HEENT Surgical History: Reports: Cataract Surgery GI Surgical History: Reports: Colonoscopy, Polypectomy Social & Family History - Family History Family Medical History: Noncontributory - Tobacco Use Smoking Status *Q: Never Smoker - Caffeine Use Caffeine Use: Reports: Coffee - Alcohol Use Days Per Week of Alcohol Use: 2 Number of Drinks Per Day: 2 Total Drinks Per Week: 4 - Recreational Drug Use Recreational Drug Use: No ED ROS GENERAL - Review of Systems Review Of Systems: ROS reveals no pertinent complaints other than HPI. ED EXAM,LOWER BACK PAIN/INJURY - Physical Exam Exam: See Below Exam Limited By: No Limitations General Appearance: Alert, WD/WN, No Apparent Distress Eye Exam: Bilateral Eye: EOMI, PERRL Ears: Normal External Exam, Hearing Grossly Normal Nose: Normal Inspection, Normal Mucosa Throat/Mouth: Normal Inspection, Normal Lips, Normal Voice, No Airway Compromise Head: Atraumatic, Normocephalic Neck: Normal Inspection, Supple, Non-Tender, Full Range of Motion Respiratory/Chest: No Respiratory Distress, Lungs Clear, Normal Breath Sounds, No Accessory Muscle Use, Splinting. No: Chest Non-Tender (slight right lateral lower rib/flank tenderness to palpation ), Respiratory Distress, Crackles, Rhonchi, Wheezing Cardiovascular: Normal Peripheral Pulses, Regular Rate, Rhythm, No Edema, No Gallop, No JVD, No Murmur, No Rub GI/Abdominal: Normal Bowel Sounds (limited due to bopdy habitus), Soft, Non- Tender, No Organomegaly, No Distention, No Abnormal Bruit, No Mass (Male) Exam: Deferred Rectal (Males) Exam: Deferred Back Exam: Normal Inspection, Decreased Range of Motion, Muscle Spasm, Other ( right flank lasissiumus muscle pain to palpation). No: Paraspinal Tenderness, Vertebral Tenderness Neurological: Alert, Normal Mood/Affect, Normal Dorsiflexion, CN II-XII Intact, Normal Plantar Flexion, Normal Reflexes, No Motor/Sensory Deficits, Oriented x 3. No: Normal Gait (guarded), Straight Leg Raise (L), Straight Leg Raise (R), Saddle Anesthesia Psychiatric: Normal Affect, Normal Mood Skin Exam: Warm, Dry, Intact, Normal Color, No Rash Course - Vital Signs Last Recorded V/S: Last Vital Signs Temp 34.9 C L 03/15/19 10:35 Pulse 70 03/15/19 10:35 Resp 16 03/15/19 10:35 BP 129/79 03/15/19 10:35 Pulse Ox 93 L 03/15/19 10:35 - Orders/Labs/Meds Meds: Medications Discontinued Medications Generic Name Dose Route Start Last Admin Trade Name Freq PRN Reason Stop Dose Admin Ketorolac Tromethamine 60 mg 03/15/19 11:27 Toradol IM 03/15/19 11:28 ONETIME ONE Departure - Departure Time of Disposition: 11:50 Disposition: Home, Self-Care 01 Clinical Impression: Strain of mid-back, Strain of back - Discharge Information Prescriptions: Cyclobenzaprine [Flexeril] 5 - 10 mg PO TID PRN 5 Days #15 tab PRN Reason: Muscle Spasm Instructions: Mid-Back Strain, Back Injury Prevention, [id number], Muscle Strain, Mid-Back Strain Rehab-SportsMed, Low Back Strain Rehab-SportsMed Referrals: Lucius Leonardo MD [Primary Care Provider] - Forms: ED Department Discharge - Problem List & Annotations (1) Strain of back SNOMED Code(s): 609627175 Code(s): S39.012A - STRAIN OF MUSCLE, FASCIA AND TENDON OF LOWER BACK, INIT Status: Acute Current Visit: Yes (2) Strain of mid-back SNOMED Code(s): 97171580 Code(s): S29.012A - STRAIN OF MUSCLE AND TENDON OF BACK WALL OF THORAX, INIT Status: Acute Current Visit: Yes - Assessment/Plan Plan: 1. Consider Heat 15-20 minutes 3-4 times per day x 5 days to increase blood flow and healing. NO LONGER than 20 minutes due to likely worsen symptoms. 2. Continue Pili 440mg every 8-12 hours x 5 days then as needed. None until evening meal due to Toradol shot today. 3. Flexeril 10 mg every 6 hours for muscles spasms and pain. May cut in half if causes you to be too tired. [facility] and Written prescription of #15 each. 4. May take Tylenol 500-1000mg every 6-8 hours as needed for additional pain ( not not help much). 5. See PCP for recheck if continued symptoms after 4 more weeks as physical therapy may be recommended for additional treatment options. BACK PAIN GENERAL INFORMATION: Back pain is often caused by improper lifting. Prevention is the garcia! See below for proper body mechanics instruction. GOAL: To minimize back pain and to allow early return to normal activities. TREATMENT: 1. Bedrest is very important for at least one to two days after a back injury to allow initial healing to occur. 2. If you find that it helps, you may apply crushed ice in a plastic bag , approximately every other 1/2 hour during the first 24-48 hours after injury. The skin should be protected with a towel between the skin and the cold pack. After 48 hours apply heat to the area. 3. You may find standing or lying to be more comfortable than sitting. 4. Take medication as directed. If any of the following warning signs occur, call your physician immediately or return to the [facility]: " radiation of pain " numbness " tingling of arms or legs " Loss of function of arms or legs " Loss of function of bowel or bladder BACK MECHANICS AND LIFTING SAFELY The safe lift is one that will allow you to accomplish the job with the least amount of strain. GENERAL RULES FOR LIFTING: " Inspect the object, look for sharp edges, grease or moisture. Decide how to hold it. " Clear a path to be sure there is no debris that might trip you. " Plan where and how the object will be placed. " Ask for help if you are not sure you can handle the object. " Hold the object firmly and close to your body while carrying it. " To vegetable picker the object, bend your knees, not your back; keep your back straight while lifting. " Lift with your legs and come fully upright. " Never twist while you lift. " Poor posture increases stress and strain on muscles and joints in your lower back and neck. " When lifting heavy objects get others to help you and use assistive devices such as a winch, trip or forklift. Low Back Pain What is low back pain? Low back pain is pain and stiffness in the lower back. It is one of the most common reasons people miss work. How does it occur? Low back pain is usually caused when a ligament or muscle holding a vertebra in its proper position is strained. Vertebrae are bones that make up the spinal column through which the spinal cord passes. When these muscles or ligaments become weak, the spine loses its stability, resulting in pain. Because nerves reach all parts of the body from the spinal cord, back problems can lead to pain or weakness in almost any part of the body. Low back pain can occur if your job involves lifting and carrying heavy objects , or if you spend a lot of time sitting or standing in one position or bending over. It can be caused by a fall or by unusually strenuous exercise. It can be brought on by the tension and stress that cause headaches in some people. It can even be brought on by violent sneezing or coughing. People who are overweight may have low back pain because of the added stress on their back. Back pain may occur when the muscles, joints, bones, and connective tissues of the back become inflamed as a result of an infection or an immune system problem. Arthritic disorders as well as some congenital and degenerative conditions may cause back pain. Back pain accompanied by loss of bladder or bowel control, difficulty in moving your legs, or numbness or tingling in your arms or legs may indicate an injury to your spine and nerves, which requires immediate medical treatment. What are the symptoms? Symptoms include: pain in the back or legs stiffness and limited motion. The pain may be continuous or may occur only in certain positions. It may be aggravated by coughing, sneezing, bending, twisting, or straining during a bowel movement. The pain may occur in only one spot or may spread to other areas , most commonly down the buttocks and into the back of the thigh. A low back strain typically does not produce pain past the knee into the calf or foot. Tingling or numbness in the calf or foot may indicate a herniated disk or pinched nerve. Be sure to see your health care provider if: You have weakness in your leg, especially if you cannot lift your foot, because this may be a sign of nerve damage. You have new bowel or bladder problems as well as back pain, which may be a sign of severe injury to your spinal cord. You have pain that gets worse despite treatment. How is it diagnosed? Your health care provider will review your medical history and examine you. He or she may order x- rays. In certain situations a myelogram , CT scan, or MRI may be ordered. How is it treated? The following are ways to treat low back pain: Using a heating pad or hot water bottle. Resting in bed on a firm mattress. Often it helps to lie on your back with your knees raised. However, some people prefer to lie on their side with their knees bent. Taking aspirin, ibuprofen, or other anti-inflammatory medications; muscle relaxants; or other pain medications if recommended by your health care provider. Having your back massaged by a trained person. Having traction, if recommended by your provider. Wearing a belt or corset to support your back. Talking with a counselor, if your back pain is related to tension caused by emotional problems. Beginning a program of physical therapy, or exercising on your own. Begin a regular exercise program to gently stretch and strengthen your muscles as soon as you can. Your health care provider or physical therapist can recommend exercises that will not only help you feel better but will strengthen your muscles and help avoid back trouble later. When the pain subsides, ask your health care provider about starting an exercise program such as the following: Exercise moderately every day, using stretching and warm-up exercises suggested by your provider or physical therapist. Exercise vigorously for about 30 minutes two or three times a week by walking, swimming, using a stationary bicycle, or doing low-impact aerobics. Participating regularly in an exercise program will not only help your back, it will also help keep you healthier overall. How long will the effects last? The effects of back pain last as long as the cause exists or until your body recovers from the strain, usually a day or two but sometimes weeks. How can I take care of myself? In addition to the treatment described above, keep in mind these suggestions: Use an electric heating pad on a low setting (or a hot water bottle wrapped in a towel to avoid burning yourself) for 20 to 30 minutes. Don't let the heating pad get too hot, and don't fall asleep with it. You could get a burn. Try putting an ice pack wrapped in a towel on your back for 20 minutes, one to four times a day. Set an alarm to avoid frostbite from using the ice pack too long. Put a pillow under your knees when you are lying down. Sleep without a pillow under your head. Lose weight if you are overweight. Practice good posture. Stand with your head up, shoulders straight, chest forward, weight balanced evenly on both feet, and pelvis tucked in. Pain is the best way to blockers skiver the pace you should set in increasing your activity and exercise. Minor discomfort, stiffness, soreness, and mild aches need not interfere with activity. However, limit your activities temporarily if : Your symptoms return. The pain increases when you are more active. The pain increases within 24 hours after a new or higher level of activity. When can I return to my normal activities? Everyone recovers from an injury at a different rate. Return to your activities will be determined by how soon your back recovers, not by how many days or weeks it has been since your injury has occurred. In general, the longer you have symptoms before you start treatment, the longer it will take to get better. The goal of rehabilitation is to return you to your normal activities as soon as is safely possible. If you return too soon you may worsen your injury. It is important that you have fully recovered from your low back pain before you return to any strenuous activity. You must be able to have the same range of motion that you had before your injury. You must be able to walk and twist without pain. What can I do to help prevent low back pain? You can reduce the strain on your back by doing the following: Don't push with your arms when you move a heavy object. Turn around and push backwards so the strain is taken by your legs. Whenever you sit, sit in a straight-backed chair and hold your spine against the back of the chair. Bend your knees and hips and keep your back straight when you lift a heavy object. Avoid lifting heavy objects higher than your waist. Hold packages you carry close to your body, with your arms bent. Use a footrest for one foot when you stand or sit in one spot for a long time. This keeps your back straight. Bend your knees when you bend over. Sit close to the pedals when you drive and use your seat belt and a hard backrest or pillow. Lie on your side with your knees bent when you sleep or rest. It may help to put a pillow between your knees. Put a pillow under your knees when you sleep on your back. Raise the foot of the bed 8 inches to discourage sleeping on your stomach unless you have other problems that require that you keep your head elevated. To rest your back, hold each of these positions for 5 minutes or longer: Lie on your back, bend your knees, and put pillows under your knees. Lie on your back, put a pillow under your neck, bend your knees to a 90- degree angle, and put your lower legs and feet on a chair. Lie on your back, bend your knees, and bring one knee up to your chest and hold it there. Repeat with the other knee, then bring both knees to your chest. When holding your knee to your chest, grab your thigh rather than your lower leg to avoid over flexing your knee. Developed by Sheyla Perez RN, [place], and [employer]
== END 2019-03-15 12:20 | disposition home or self-care (01) ==
LOC: JP.ED 10:10
DX: S29.012A Strain of muscle and tendon of back wall of thorax, initial encounter (principal); S39.012A Strain of muscle, fascia and tendon of lower back, initial encounter; E11.9 Type 2 diabetes mellitus without complications; E78.00 Pure hypercholesterolemia, unspecified; I10 Essential (primary) hypertension; J45.909 Unspecified asthma, uncomplicated; Z79.899 Other long term (current) drug therapy; Z91.048 Other nonmedicinal substance allergy status; Z79.4 Long term (current) use of insulin; Z99.11 Dependence on respirator [ventilator] status; X50.0XXA Overexertion from strenuous movement or load, initial encounter
CPT/HCPCS: 96372; 99283; J1885

== ENCOUNTER 2022-01-18 06:37 | Day surgery (SDC) | payer MEDICARE, BC ==
[2022-01-18] MEDS ORDERED: fentaNYL 100 MCG/2 ML SDV ONE (06:53)
[2022-01-18] MEDS ORDERED: Midazolam 1 MG/ML 2 ML SDV ONE (06:53)
[2022-01-18] MEDS ORDERED: Propofol 200 MG/20 ML SDV ONE ×2 (06:53→08:07)
[2022-01-18] MEDS ORDERED: Lidocaine 1% with EPINEPHrine 1:100,000 50 ML MDV ONE (06:57)
[2022-01-18] MEDS ORDERED: Bupivacaine 0.5% 50 ML MDV ONE (06:57)
[2022-01-18] MEDS ORDERED: Acetaminophen 500 MG Tab PO ONE (07:15)
[2022-01-18] MEDS ORDERED: Dextrose 5%-Lactated Ringers 1,000 ML IV SCH (07:30)
[2022-01-18] MEDS ORDERED: Albuterol/Ipratropium 3.0-0.5 MG/3 ML Neb Soln NEB ONE (07:30)
[2022-01-18] MEDS ORDERED: ceFAZolin 2 GM in Premix Bag 1 BAG IV ONE (08:00)
[2022-01-18 09:45] VITALS: BP 144/77; PULSE 59
== END 2022-01-18 09:46 | disposition home or self-care (01) ==
LOC: JP.SDS 06:37
PROVIDERS: ATTEND Surgery
DX: C18.9 Malignant neoplasm of colon, unspecified (principal); G47.33 Obstructive sleep apnea (adult) (pediatric); I13.0 Hypertensive heart and chronic kidney disease with heart failure and stage 1 through stage 4 chronic kidney disease, or unspecified chronic kidney disease; J44.9 Chronic obstructive pulmonary disease, unspecified; I50.9 Heart failure, unspecified; N18.30 Chronic kidney disease, stage 3 unspecified
CPT/HCPCS: A9270-GY; C1788; J0690; J1642; J2020; J2250; J2704; J3010; J3490; J7121; J7620

== ENCOUNTER 2023-02-18 13:03 | Emergency (ER) | payer MEDICARE, BC ==
[2023-02-18 13:32] VITALS: BP 145/80; PULSE 76
[2023-02-18] MEDS ORDERED: Ketorolac 30 MG/ML SDV IM ONE (13:58)
== END 2023-02-18 14:37 | disposition home or self-care (01) ==
LOC: JP.ED 13:03
DX: S39.012A Strain of muscle, fascia and tendon of lower back, initial encounter (principal); I12.9 Hypertensive chronic kidney disease with stage 1 through stage 4 chronic kidney disease, or unspecified chronic kidney disease; E11.22 Type 2 diabetes mellitus with diabetic chronic kidney disease; N18.30 Chronic kidney disease, stage 3 unspecified; E78.00 Pure hypercholesterolemia, unspecified; E66.9 Obesity, unspecified; Z91.09 Other allergy status, other than to drugs and biological substances; Z95.1 Presence of aortocoronary bypass graft; Z79.4 Long term (current) use of insulin; Z79.899 Other long term (current) drug therapy; Z87.891 Personal history of nicotine dependence; Z98.1 Arthrodesis status; Z68.38 Body mass index [BMI] 38.0-38.9, adult
CPT/HCPCS: 72100; 96372; 99283; J1885